=== PATIENT | female | born 1980 | race American Indian/Alaskan Native ===

== ENCOUNTER → 2017-06-13 | Day surgery (SDC) | payer OTHER, MEDICAID ==
[~2017-06-13] MED LIST: Acetaminophen/HYDROcodone 325-5 MG Tab PO ONE; Bupivacaine 0.5% 50 ML MDV ONE; Clindamycin Phosphate 900 MG in Sodium Chloride 0.9% 100 ML IV ONE; Levofloxacin/Dextrose 5%-Water 500 MG in Premix Bag 1 BAG IV ONE; Lidocaine 1% with EPINEPHrine 1:100,000 50 ML MDV ONE; Midazolam 1 MG/ML 2 ML SDV ONE; Propofol 200 MG/20 ML SDV ONE; fentaNYL 100 MCG/2 ML SDV IVPUSH ONE; fentaNYL 100 MCG/2 ML SDV ONE
--- NOTE | 2017-06-13 17:53 | EDM.PDOC ---
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 About 2 days ago, noted increase in pain. Today with chills and intense pain. Brought by EMS for evaluation. Currently reports pain well controlled after 300 Fentanyl IV. Last meal at 0900. 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 Social & Family History - Tobacco Use Smoking Status *Q: Unknown Ever Smoked ED ROS GENERAL - Review of Systems Review Of Systems: See Below Constitutional: Reports: Chills, Malaise HEENT: Reports: No Symptoms Respiratory: Reports: No Symptoms Cardiovascular: Reports: No Symptoms Endocrine: Reports: No Symptoms GI/Abdominal: Reports: No Symptoms : Reports: Other (labial pain) ED EXAM, RENAL/ - Physical Exam Exam: See Below Exam Limited By: No Limitations General Appearance: Alert, WD/WN, Moderate Distress Ears: Normal External Exam, Normal Canal, Hearing Grossly Normal, Normal TMs Nose: Normal Inspection, Normal Mucosa, No Blood Throat/Mouth: Normal Inspection, Normal Lips, Normal Teeth, Normal Gums, Normal Oropharynx, Normal Voice, No Airway Compromise Head: Atraumatic, Normocephalic Neck: Normal Inspection, Supple, Non-Tender, Full Range of Motion Respiratory/Chest: No Respiratory Distress, Lungs Clear, Normal Breath Sounds, No Accessory Muscle Use, Chest Non-Tender Cardiovascular: Normal Peripheral Pulses, Regular Rate, Rhythm, No Edema, No Gallop, No JVD, No Murmur, No Rub (Female) Exam: Vaginal Lesions (left labia enlarged, tender, reddened) Course - Vital Signs Last Recorded V/S: Last Vital Signs Temp 98.1 F 06/13/17 20:20 Pulse 78 06/13/17 20:20 Resp 16 06/13/17 20:20 BP 100/59 L 06/13/17 20:20 Pulse Ox 100 06/13/17 20:20 - Orders/Labs/Meds Orders: Active Orders 24 hr Category Date Time Status CULTURE ANAEROBIC [RM] Routine Lab 06/13/17 19:53 Received CULTURE WOUND + SMEAR [RM] Stat Lab 06/13/17 19:53 Results HCG QUALITATIVE,URINE [URCHEM] Stat Lab 06/13/17 18:43 Uncollected Labs: Laboratory Tests 06/13/17 Range/Units 17:37 WBC 10.2 (4.5-11.0) K/uL RBC 4.43 (3.30-5.50) M/uL Hgb 13.5 (12.0-15.0) g/dL Hct 40.9 (36.0-48.0) % MCV 92 (80-98) fL MCH 31 (27-31) pg MCHC 33 (32-36) % Plt Count 449 H (150-400) K/uL Neut % (Auto) 57 (36-66) % Lymph % (Auto) 33 (24-44) % Trigg % (Auto) 8 H (2-6) % Eos % (Auto) 1 L (2-4) % Baso % (Auto) 1 (0-1) % Meds: Medications Discontinued Medications Generic Name Dose Route Start Last Admin Trade Name Alonso PRN Reason Stop Dose Admin Bupivacaine HCl Confirm 06/13/17 18:48 Marcaine 0.5% Administered 06/13/17 18:49 Dose 50 ml .ROUTE .STK-MED ONE Fentanyl Confirm 06/13/17 18:46 Sublimaze Administered 06/13/17 18:47 Dose 100 mcg .ROUTE .STK-MED ONE Fentanyl 50 mcg 06/13/17 19:59 06/13/17 20:05 Sublimaze IVPUSH 06/13/17 20:00 50 mcg ONETIME ONE Administration Levofloxacin/Dextrose 500 mg/ 100 mls @ 100 mls/hr 06/13/17 18:39 06/13/17 18 :54 Premix IV 06/13/17 19:38 100 mls/hr ONETIME ONE Administration Clindamycin Phosphate 900 mg/ 106 mls @ 200 mls/hr 06/13/17 18:39 06/13/17 18 :54 Sodium Chloride IV 06/13/17 19:10 200 mls/hr ONETIME ONE Administration Lidocaine/Epinephrine Confirm 06/13/17 18:48 Xylocaine 1% With Epinephrine 1:100,000 Administered 06/13/17 18:49 Dose 50 ml .ROUTE .STK-MED ONE Midazolam HCl Confirm 06/13/17 18:46 Versed 1 Mg/Ml Administered 06/13/17 18:47 Dose 2 mg .ROUTE .STK-MED ONE Midazolam HCl Confirm 06/13/17 19:23 Versed 1 Mg/Ml Administered 06/13/17 19:24 Dose 2 mg .ROUTE .STK-MED ONE Propofol Confirm 06/13/17 18:46 Diprivan 20 Ml Administered 06/13/17 18:47 Dose 200 mg .ROUTE .STK-MED ONE Departure - Departure Time of Disposition: 20:31 Disposition: Home, Self-Care 01 Condition: Good Clinical Impression: Bartholin gland cyst - Discharge Information - My Orders Last 24 Hours: My Active Orders 06/13/17 18:43 HCG QUALITATIVE,URINE [URCHEM] Stat - Assessment/Plan Last 24 Hours: My Active Orders 06/13/17 18:43 HCG QUALITATIVE,URINE [URCHEM] Stat
[2017-06-13 21:36] VITALS: BP 92/57
--- NOTE | 2017-06-20 21:18 | OR ---
DATE OF PROCEDURE: 06/13/2017 PREOPERATIVE DIAGNOSIS: Left Bartholin cyst abscess. POSTOPERATIVE DIAGNOSIS: Left Bartholin cyst abscess. PROCEDURE: Incision and drainage and placement of a Word catheter in left Bartholin cyst abscess. ANESTHESIA: IV anesthesia with monitored anesthesia care. INDICATIONS: This 37-year-old female complains of a very painful swollen left labia. She has what appears to be a Bartholin cyst abscess. She is referred for drainage of this. I counseled for this including possibly placing a Word catheter and she gave her informed consent to proceed. DESCRIPTION OF PROCEDURE: After adequate IV anesthesia was obtained, the patient's lower abdomen, groin, and genitalia were prepped and draped in the usual sterile fashion. Lidocaine 1% with epinephrine in a 50:50 mix with 0.5% Marcaine was infiltrated in the area of the left Bartholin cyst abscess. A small skin incision was made, releasing copious quantities of fluid, this was sent for Gram stain and culture. We explored the cavity, break up any loculations. A Word catheter was then obtained. The balloon was tested. It was then placed up into the Bartholin cyst cavity and inflated. The end of the catheter was then placed up in the vagina. She was placed supine and brought from the operating room, having tolerated the procedure well, in good condition. Jovany Castaneda MD /[id number] MTDColleen
== END | disposition home or self-care (01) ==
LOC: JP.ED 17:17 → JP.SDS 19:04
PROVIDERS: ATTEND Surgery
DX: N75.1 Abscess of Bartholin's gland (principal); N75.0 Cyst of Bartholin's gland; F17.210 Nicotine dependence, cigarettes, uncomplicated; Z98.890 Other specified postprocedural states; Z88.0 Allergy status to penicillin
CPT/HCPCS: 36415; 56420; 85025; 87070; 87075; 87077; 87186; 87205; 96365; 96366; 96368; 96375; 99283; 99284; A9270; J1956; J2250; J2704; J3010; J7030; S0077

== ENCOUNTER 2017-06-16 18:25 | Emergency (ER) | payer MEDICAID, OTHER ==
[2017-06-16 18:55] VITALS: BP 127/79
--- NOTE | 2017-06-16 19:18 | EDM.PDOC ---
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 This was done by Dr. Bonilla. She was supposed to follow-up with him today but couldn't make it. She is in the ER asking us to take it because it hurts. Reviewed her records and I think that we will have her follow-up with Dr. Bonilla tomorrow in the clinic in fax over a follow-up form for her to be contacted so that he can take care of this. She's having no fevers or chills. She still has some pain medications left over.] Review of systems: As per history of present illness and below otherwise all systems reviewed and negative. Past medical history: As per history of present illness and as reviewed below otherwise noncontributory. Surgical history: As per history of present illness and as reviewed below otherwise noncontributory. Social history: No reported history of drug or alcohol abuse. Family history: As per history of present illness and as reviewed below otherwise noncontributory. Physical exam: HEENT: Atraumatic, normocephalic, . Lungs: Clear to auscultation, breath sounds equal bilaterally, chest nontender. Heart: S1S2, regular, Abdomen: Soft, nondistended, nontender Pelvis: Stable nontender. Genitourinary: She has a device in place with a presume is in the site where the cyst was that is inflated I did not adjust anything or remove her to do anything with it but it is intact and I think functioning as it should be. Rectal: Deferred. Extremities: Neurovascular unremarkable. Neuro: Awake, alert, Exam nonfocal. Diagnostics: [] Therapeutics: [] Impression: [Status post Bartholin's cyst surgery] Plan: [She will follow-up with Dr. Bonilla tomorrow] Definitive disposition and diagnosis as appropriate pending reevaluation and review of above. 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 ED EXAM, GENERAL - Physical Exam Exam: See Below Course - Vital Signs Last Recorded V/S: Last Vital Signs Temp 36.6 C 06/16/17 18:52 Pulse 92 06/16/17 18:52 Resp 15 06/16/17 18:52 BP 127/79 06/16/17 18:52 Pulse Ox 99 06/16/17 18:52 Departure - Departure Time of Disposition: 19:17 Disposition: Home, Self-Care 01 Condition: Good Clinical Impression: Bartholin's cyst - Discharge Information Referrals: PCP,None [Primary Care Provider] - Additional Instructions: Please follow-up with Dr. Bonilla tomorrow. They should be calling you with an appointment.
== END 2017-06-16 19:35 | disposition home or self-care (01) ==
LOC: JP.ED 18:25
DX: N75.0 Cyst of Bartholin's gland (principal); Z88.1 Allergy status to other antibiotic agents
CPT/HCPCS: 99283

== ENCOUNTER 2017-06-30 18:33 | Emergency (ER) | payer MEDICAID, OTHER ==
--- NOTE | 2017-06-30 19:53 | EDM.PDOC ---
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 Seen in ED on 06/16, instructed to follow-up with surgeon in AM and did not go to appointment. Has had increasing pain over past two days with more swelling and discharge in area. More pain to sit and walk. Last felt catheter 2 days ago. 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, VAGINAL ABCESS/L LABIA WITH A DRAIN - Past Surgical History Female Surgical History: Reports: Section Social & Family History - Tobacco Use Smoking Status *Q: Current Every Day Smoker Years of Tobacco use: 10 Packs/Tins Daily: 1 - Caffeine Use Caffeine Use: Reports: Coffee - Recreational Drug Use Recreational Drug Use: No ED ROS GENERAL - Review of Systems Review Of Systems: See Below Constitutional: Denies: Fever, Chills HEENT: Reports: No Symptoms Respiratory: Reports: No Symptoms Cardiovascular: Reports: No Symptoms Endocrine: Reports: No Symptoms GI/Abdominal: Denies: Abdominal Pain, Diarrhea : Reports: Discharge. Denies: Frequency, Incontinence Skin: Reports: No Symptoms Neurological: Reports: No Symptoms Psychiatric: Reports: No Symptoms Hematologic/Lymphatic: Reports: No Symptoms ED EXAM, GI/ABD - Physical Exam Exam: See Below Exam Limited By: No Limitations General Appearance: Alert, WD/WN GI/Abdominal Exam: Normal Bowel Sounds, Soft, Non-Tender, No Distention (Female) Exam: Other (tenderness and swelling over the left labia. no signs of catheter present. Very tender to touch) Back Exam: Normal Inspection Extremities: Normal Inspection Neurological: Alert, Oriented ED I&D PROCEDURES - I&D Site: Bartholins gland Skin prep: Saline Local anesthesia - Lidocaine (Xylocaine): 1% Plain Local Anesthetic Volume: 4cc Area Incised With: 11 Blade Drainage: Purulent, Large Amount Probed to Break Up Loculations: No Packed With: Other (Bartholins cyst catheter, filled with 5 cc of saline) Sterile Dressing: None Complications: No Course - Vital Signs Last Recorded V/S: Last Vital Signs Temp 36.7 C 06/30/17 18:57 Pulse 122 H 06/30/17 18:57 Resp 20 06/30/17 18:57 BP 144/98 H 06/30/17 18:57 Pulse Ox 98 06/30/17 18:57 - Orders/Labs/Meds Meds: Medications Discontinued Medications Generic Name Dose Route Start Last Admin Trade Name Alonso PRN Reason Stop Dose Admin Fentanyl 100 mcg 06/30/17 20:13 06/30/17 20:28 Sublimaze IVPUSH 06/30/17 20:14 100 mcg ONETIME ONE Administration Lidocaine HCl 5 ml 06/30/17 20:11 06/30/17 20:45 Xylocaine-Mpf 1% INJECT 06/30/17 20:12 5 ml ONETIME ONE Administration - Re-Assessments/Exams Free Text/Narrative Re-Assessment/Exam: 06/30/17 21:00 Here with a recurrent Bartholin gland infection, having had her catheter fall out at home, in past few days. 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, who recommends draining the lesion She was given 100 mcg of Fentanyl IV, followed by local injection with 1 % lidocaine Lesion was drained after incising with #11 blade, copious pus, bartholin gland cath inserted Will be discharged to home with oral keflex and norco for pain Surgery asks that she follow-up in clinic tomorrow AM Departure - Departure Time of Disposition: 21:14 Disposition: Home, Self-Care 01 Clinical Impression: Bartholin's gland abscess - Discharge Information Instructions: Pain Medicine Instructions, [id number] Referrals: Jovany Castaneda MD [Primary Care Provider] - Forms: ED Department Discharge Additional Instructions: You are to be seen in the surgery clinic tomorrow AM at 8 AM for follow-up Take keflex 4 times daily for next week [place] 5/325, one tab every 4-6 hours for pain There is a catheter in the abscess, please leave in place
[2017-06-30] MEDS ORDERED: fentaNYL 100 MCG/2 ML SDV IVPUSH ONE (20:13)
[2017-06-30 21:31] VITALS: BP 135/87
== END 2017-06-30 21:31 | disposition home or self-care (01) ==
LOC: JP.ED 18:33
DX: N75.1 Abscess of Bartholin's gland (principal); F17.210 Nicotine dependence, cigarettes, uncomplicated; Z88.1 Allergy status to other antibiotic agents
CPT/HCPCS: 56420; 96374; 99283; J3010

== ENCOUNTER 2025-10-20 15:13 | Emergency (ER) | payer SELFPAY ==
[2025-10-20 16:40] VITALS: BP 142/79; PULSE 74
[2025-10-20] MEDS: Acetaminophen/oxyCODONE 325-5 MG Tab PO ONE (17:00)
== END 2025-10-20 17:09 | disposition home or self-care (01) ==
LOC: JP.ED 15:13
DX: S82.831A Other fracture of upper and lower end of right fibula, initial encounter for closed fracture (principal); F17.200 Nicotine dependence, unspecified, uncomplicated; Z88.0 Allergy status to penicillin; W10.8XXA Fall (on) (from) other stairs and steps, initial encounter
CPT/HCPCS: 29515; 73610; 96374; 99284; A9270; J1171